=== PATIENT | female | born 1975 | race American Indian/Alaskan Native ===

== ENCOUNTER 2018-03-11 20:51 | Emergency (ER) | payer SELFPAY ==
[2018-03-11 21:26] VITALS: BP 127/79
[2018-03-11 22:25] LABS: HCG Qualitative,Urine Negative (Negative)
[2018-03-11 22:26] LABS: Bilirubin,Urine NEG (Negative); Blood,Urine NEG (Negative); Color,Urine Yellow (Yellow); Mucus,Urine FEW /HPF; Protein,Urine <15 mg/dL mg/dL (Negative); Urobilinogen,Urine < 2.0 mg/dL (<2.0)
== END 2018-03-12 04:30 | disposition left against medical advice (07) ==
LOC: ED 20:51
DX: M54.9 Dorsalgia, unspecified (principal); Z53.21 Procedure and treatment not carried out due to patient leaving prior to being seen by health care provider
CPT/HCPCS: 81001; 81025